=== PATIENT | male | born 1980 | race Caucasian/White ===

== ENCOUNTER 2022-04-23 09:32 | Emergency (ER) | payer OTHER ==
[2022-04-23 09:49] VITALS: BP 117/75; PULSE 89; RESP 18; TEMP 98.5; BMI 29.7
[2022-04-23 10:17] LABS: HEMATOCRIT 50.2 % (35.4-49); HEMOGLOBIN 17.7 G/dL (11.7-16.9); MCH 32.1 pg (25.7-33.7); MCHC 35.2 g/dl (32.0-35.9); MEAN CELL VOLUME 91.3 fl (80-96); MEAN PLT VOLUME 7.7 fl (7.5-11.1); PLATELET COUNT 198.2 10^3/uL (134-434); RDW 14.2 % (11.9-15.9); WHITE BLOOD COUNT 11.6 10^3/uL (4.0-10.8)
[2022-04-23 10:19] LABS: ALBUMIN 4.1 g/dl (3.4-5.0); BILIRUBIN,TOTAL 0.6 mg/dl (0.2-1); CALCIUM 9.2 mg/dl (8.5-10); CREATININE 0.8 mg/dl (0.55-1.3); MAGNESIUM 1.8 mg/dL (1.8-2.4); TOT PROT 6.7 g/dl (6.4-8.2)
[2022-04-23 10:21] LABS: PLATELET ESTIMATE ADEQUATE
== END 2022-04-23 11:20 | disposition home or self-care (01) ==
LOC: FER 09:32
DX: R07.9 Chest pain, unspecified (principal)
CPT/HCPCS: 36415; 71046-TC-FY; 80053; 82550; 82553; 83735; 84484; 85025; 93005; 99285-25